=== PATIENT | male | born 1960 | race Caucasian/White ===

== ENCOUNTER → 2019-05-26 10:03 | Outpatient (CLI) | payer OTHER | END | disposition home or self-care (01) | LOC: D.MRI 10:03 | PROVIDERS: ATTEND Nurse Practitioner Family | DX: S76.311A Strain of muscle, fascia and tendon of the posterior muscle group at thigh level, right thigh, initial encounter (principal) ==

== ENCOUNTER → 2019-06-08 13:52 | Outpatient (CLI) | payer OTHER ==
--- NOTE | ~2019-06-08 | HEMODYNAMI ---
PATIENT:SJ LLAENS PAGE MEDICAL RECORD: [id number] : 62 LOCATION:[facility] ADMISSION DATE: 06/08/19 Generatedon:06/08/201914:46 Patient name: SJ LLANES Patient #: [id number] SSN: : 1960 Date of study: 06/08/2019 Page: Of Hemodynamic Procedure Report Patient Data Patient Demographics Procedure consent was obtained First Name: SJ Gender: Male Last Name: MARIO ALBERTO : 1960 Middle Initial: PAGE Age: 59 year(s) Patient #: [id number] Race: Unknown Additional ID: [id number] Contact details Address: [address] [place] [address] [facility] State: [place] City: [place] Zip code: [address] Past Medical History Allergies: No known allergies Admission Admission Data Admission Date: 06/08/2019 Admission Time: 13:52 Procedure Procedure Types Cath Procedure Peripheral Cath Diagnostic Procedure Banquet Food Server Peripheral Procedures Miscellaneous Aspiration/Injection (Joint) Procedure Description Procedure Date Procedure Date: 06/08/2019 Procedure Start Time: 14:26 Procedure Staff Name Function Moses Maher MD Performing Physician Manjula Soares RT Pantry Attendant Procedure Data Cath Procedure Fluoroscopy Diagnostic fluoroscopy Total fluoroscopy Time: 0.3 time: 0.3 min min Diagnostic fluoroscopy Total fluoroscopy dose: 3 dose: 3 mGy mGy Contrast Material Contrast Material Type Amount (ml) Isovue 300 8 Hemodynamics Rest Pre Cath Intra NCS Post Cath Procedure Log Time Note 14:14:13 Patient received from Other to IR Alert and oriented. Tansferred to table in Supine position. 14:14:26 - 14:14:28 Pre-procedure instructions explained to patient. 14:14:29 Pre-op teaching completed and patient verbalized understanding. 14:14:39 Patient allergic to No known allergies 14:14:44 - 14:15:03 SAFE-T PLUS MYELOGRAM TRAY opened to sterile field. 14:15:05 - 14:20:33 Time tracking: Regular hours (M-F 7:00 - 5:00) 14:20:40 Signed procedure consent form obtained from patient. 14::53 Right Hip was prepped with betadine and draped in sterile fashion. 14:25:34 Physician arrived 14::36 Final Timeout: patient, procedure, and site verified with staff and physician. All members of the team are in agreement. 14:25:36 --------ALL STOP TIME OUT------ 14:26:13 Procedure started. 14:26:43 Full Disclosure recording started 14:26:52 Local anesthetic to Right Hip with Lidocaine 1% by Moses Maher MD.INITIAL ACCESS ONLY 14:40:22 RT HIP INJECTED WITH KENALOG 14:40:25 Procedure ended.(Physican Out) 14:40:32 Fluoroscopy time 00.30 minutes. 14:40:38 Fluoroscopy dose: 3 mGy 14:40:38 Flurop Dose total: 3 14:40:53 Contrast amount:Isovue 300 8ml. Device Usage Item Name Manufacture Quantity Catalog Hospital Part Current Minimal Lot# / Number Charge Number Stock Stock Serial# Code SAFE-T [employer] 1 [id number] PLUS MYELOGRAM TRAY Signature Audit Kinde Stage Time Signature Unsigned Intra-Procedure 06/08/2019 Manjula Soares 2:46:52 PM RT[facility] [address] [place] [address]
== END | disposition home or self-care (01) ==
LOC: D.RAD 13:52
PROVIDERS: ATTEND Nurse Practitioner Family
DX: M70.71 Other bursitis of hip, right hip (principal)

== ENCOUNTER → 2019-12-22 10:14 | Outpatient (CLI) | payer OTHER | END | disposition home or self-care (01) | LOC: D.HCCECHO 10:00 | PROVIDERS: ATTEND Internal Medicine Cardiovascular Disease | DX: R00.2 Palpitations (principal) ==